=== PATIENT | female | born 1975 | race Caucasian/White ===

== ENCOUNTER 2024-04-04 07:00 | Day surgery (SDC) | payer BC ==
[~2024-04-04] VITALS: Ht 167.6 cm; Wt 95.0 kg
[~2024-04-04 07:00] MED LIST: IBLOOD GLUCOSE TEST STRIP 1 EA TEST VI PRN; LACTATED RINGER'S 1,000 ML IV SCH; LIDOCAINE HCL 1% 5 ML SDV INJ ONE; MIDAZOLAM HCL 5 MG/5 ML VIAL IV PRN; fentaNYL citrate 100 MCG/2 ML VIAL IV PRN
[2024-04-04 07:11] VITALS: BP 98/56
[2024-04-04] MEDS ORDERED: fentaNYL citrate 100 MCG/2 ML VIAL ONE (08:31)
[2024-04-04] MEDS ORDERED: MIDAZOLAM HCL 5 MG/5 ML VIAL ONE (08:31)
--- NOTE | 2024-04-04 09:39 | NUR ---
04/04/24 0939 Brenda Cadet 0909- PT ARRIVES TO PACU REACTIVE TO VOICE. PT REPORTS NO PAIN OR NAUSEA. FALLS INSTANTLY BACK TO SLEEP WHEN NOT BEING TALKED TO. RESP EVEN AND UNLABORED. OXYGEN SAT HIGH 90'S TO 100% ON 1L VIA CO2 NC. 0921- DR. MOTT AT THE BEDSIDE TO TALK WITH THE PT. 0932- OXYGEN TITRATED OFF. 0938- PT MORE AROUSABLE AND REQUESTING ICE WATER.
[2024-04-04 09:59] VITALS: BP 105/56
--- NOTE | 2024-04-07 09:47 | OR ---
[facility] [address], [place] [address] Signed DATE OF OPERATION: 04/04/2024 SURGEON: Kimberly Mott MD PREOPERATIVE DIAGNOSIS: Colon screening. POSTOPERATIVE DIAGNOSIS: Small polyp, cecum (excised). PROCEDURE: Total colonoscopy to cecum with cold morcellation polypectomy x1. ANESTHESIA: Intravenous sedation; fentanyl 100 mcg and Versed 5 mg. INDICATION: This 48-year-old white woman is a patient of JAY John. She is here for screening colonoscopy. She has no symptoms of bleeding, diarrhea, or constipation and no family history of colon cancer. Her father did recently of pancreatic cancer. Genetic testing shows no specific marker in that regard. She understands the risk of screening colonoscopy including but not limited to bleeding, infection, and perforation and wished to proceed. FINDINGS: The prep was excellent. Complete colonoscopy was undertaken of the cecum with full intubation of the cecum. There was a small polyp of the cecum, which was excised with cold morcellation technique. The remaining colon was normal, but she did have some internal hemorrhoidal changes as well. DESCRIPTION OF PROCEDURE: The patient was brought to the endoscopy suite and placed in the lateral decubitus position, given intravenous sedation to the point of slurred speech and nystagmus with full cardiopulmonary monitoring. Digital rectal examination was normal. An Olympus video colonoscope was passed in the rectum and manipulated throughout the colon ultimately intubating the cecum. A very small polyp was noted in the cecum, it was excised with cold morcellation technique. The scope was withdrawn from that point and careful examination throughout showed no sign of abnormality specifically no additional polyps, diverticular formation, colitis, or cancer. Retroflexed view of the rectum did Electronically Signed By: KIMBERLY MOTT MD 04/07/24 0947 PATIENT NAME: DYLAN HAYNES OPERATIVE REPORT DATE OF : 71 REPORT #: [id number] PHYSICIAN: KIMBERLY MOTT MD PCP: MARIA ANTONIA LANDAVERDE PA-C REPORT IS CONFIDENTIAL AND NOT TO BE RELEASED WITHOUT AUTHORIZATION [facility] [address], [place] [address] Signed show some internal hemorrhoidal changes. The scope was straightened, withdrawn and removed. The patient was taken to the recovery room in good condition. CONCLUDING DIAGNOSIS: Small polyp of cecum x1. PLAN: Recommend repeat colonoscopy in 5 years, sooner if clinically indicated. Additionally, recommend high-fiber diet. She will return to the ongoing care of PA. Dora MD LISA Mahajan/WALT /[id number] cc: Maria Antonia Landaverde PA-C Copies: MARIA ANTONIA LANDAVERDE PA-C ~ Electronically Signed By: KIMBERLY MOTT MD 04/07/24 0947 PATIENT NAME: DYLAN HAYNES OPERATIVE REPORT DATE OF : 71 REPORT #: [id number] PHYSICIAN: KIMBERLY MOTT MD PCP: MARIA ANTONIA LANDAVERDE PA-C REPORT IS CONFIDENTIAL AND NOT TO BE RELEASED WITHOUT AUTHORIZATION
--- NOTE | 2024-04-08 11:34 | PATH ---
[facility] [address] [place], [place] [address] Signed SPECIMEN(S): A CECUM COLON POLYP SPECIMEN SOURCE: A. CECUM COLON POLYP CLINICAL HISTORY: Initial screening, family history of colon cancer FINAL PATHOLOGIC DIAGNOSIS: Cecum, polypectomy: - Tubular adenoma BRP MICROSCOPIC EXAMINATION: Histologic sections of all submitted blocks are examined by light microscopy. These findings, together with the gross examination, support the pathologic diagnosis. GROSS DESCRIPTION: The specimen, labeled and designated "justen Caputo colon polyp," is received in formalin and consists of one carrasco soft tissue fragment, 0.3 cm. Entirely submitted in (A1). VB (under the direct supervision of a pathologist) The Gross Description was prepared using a voice recognition system. The report was reviewed for accuracy; however, sound-alike word errors, addition and/or deletions may occur. If there is any question about this report, please contact Client Services. ADDITIONAL NOTES: Immunohistochemical and/or in situ hybridization studies if performed in this case included appropriate positive controls that reacted as expected. This test was developed and its performance characteristics determined by [facility]. It has not been cleared or approved by the U.S. Food and Drug Administration. The FDA has determined that such clearance or approval is not necessary. This test is used for clinical purposes. It should not be regarded as investigational or for research. [facility] is certified under the Clinical Laboratory Improvement Amendments of 1988 (CLIA) as qualified to perform high complexity clinical laboratory testing. PATIENT NAME: DYLAN CAPUTO PATHOLOGY DATE OF : 71 REPORT #: [id number] PHYSICIAN: CRUZ LOONEY PCP: ANA PAULA DIOP PA-C REPORT IS CONFIDENTIAL AND NOT TO BE RELEASED WITHOUT AUTHORIZATION [facility] [address] [place] [address] Signed PERFORMING LABORATORY: Technical component was performed by [facility], [address] [place] [address] (CLIA# [id number]). Professional interpretation [facility] by [facility] [address] [address] (CLIA# [id number]). Diagnostician: Hilton Babin MD Pathologist Electronically Signed 04/08/2024 Copies: ~ PATIENT NAME: DYLAN CAPUTO PATHOLOGY DATE OF : 71 REPORT #: [id number] PHYSICIAN: CRUZ LOONEY PCP: ANA PAULA DIOP PA-C REPORT IS CONFIDENTIAL AND NOT TO BE RELEASED WITHOUT AUTHORIZATION
== END 2024-04-04 10:05 | disposition home or self-care (01) ==
LOC: DS 07:00
PROVIDERS: ATTEND Surgery
PROC: 0DBH8ZZ Excision of Cecum, Via Natural or Artificial Opening Endoscopic (ICD-10-PCS; principal; 2024-04-04 08:30)
DX: Z12.11 Encounter for screening for malignant neoplasm of colon (principal); D12.0 Benign neoplasm of cecum; K64.8 Other hemorrhoids; Z80.0 Family history of malignant neoplasm of digestive organs
CPT/HCPCS: 84703; 99153; G0500; J2250; J3010; J7121